=== PATIENT | female | born 1960 | race Hispanic/Latino ===

== ENCOUNTER → 2025-02-02 | Day surgery (SDC) | payer BC, OTHER ==
[2025-01-30 08:59] LABS: BASOPHILS % 0.2 % (0.0-1.0); EOSINOPHILS % 0.9 % (0.0-6.0); LYMPHOCYTES % 42.6 % (18.0-39.1); MONOCYTES % 7.3 % (4.4-11.3); NEUTROPHILS % 48.8 % (38.7-80.0); RED CELL DISTRIBUTION WIDTH 12.8 % (11.7-14.4)
[~2025-02-02] MED LIST: ACETAMINOPHEN 1000 MG/100 ML 100 ML IV ONE; ACETAMINOPHEN 1000 MG/100 ML IV PRN; ASPIRIN 325 MG TAB PO SCH; ASPIRIN81 MG PO; CELECOXIB 100 MG CAP PO SCH; DEXAMETHASONE 10MG/ML PF INJ ONE; DEXAMETHASONE SOD PHOS INJ 4 MG/ML SDV ONE; DIPHENHYDRAMINE HCL INJ 50 MG/ML VIAL IV PRN; DOCUSATE SODIUM 100 MG CAP PO PRN; EPHEDRINE SULFATE INJ 50 MG/ML VIAL ONE; FENTANYL CITRATE/PF 100MCG/2 ML INJ ONE; GLYCOPYRROLATE INJ 0.2 MG/ML VIAL ONE; HYDROCODONE/APAP 5MG-325MG TAB PO PRN; HYDROCODONE/APAP 7.5MG-325MG 1 EA TAB PO PRN; LIDOCAINE HCL 2% LOCAL INJ 5 ML SDV VIAL INJ ONE; METOCLOPRAMIDE HCL 10 MG/2ML VIAL ONE; MIDAZOLAM HCL 2 MG/2 ML VIAL ONE; NEOSTIGMINE 1 MG/ML 10ML VIAL ONE; OMEPRAZOLE40 MG PO; ONDANSETRON HCL INJ 2MG/ML 2ML 2 MG/ML VIAL IV PRN; ONDANSETRON HCL INJ 2MG/ML 2ML 2 MG/ML VIAL ONE; PROPOFOL IV EMULSION 10 MG/ML 20 ML VIAL ONE; PRUNELAX PO; ROCURONIUM BROMIDE 1 ML IV ONE; ROPIVACAINE/EPI/CLONIDINE/KET 50 ML SYRINGE INJ ONE; SODIUM CHLORIDE 0.9% 1000ML 1,000 ML IV SCH; SUCCINYLCHOLINE CHLORIDE 20 MG/ML 10ML VIAL ONE; [UNRECOGNIZED DRUG - OTHER] PO
[2025-02-02] MEDS: GABAPENTIN 300 MG CAP ONE (08:32)
[2025-02-02] MEDS: CELECOXIB 200 MG CAP ONE (08:33)
[2025-02-02] MEDS: CEFAZOLIN SODIUM 2 GM ONE (08:34)
[2025-02-02] MEDS: LACTATED RINGER'S 1,000 ML ONE (08:35)
[2025-02-02 11:03] VITALS: TEMP 97
[2025-02-02] MEDS: SCOPOLAMINE 1 MG PATCH ONE (14:02)
[2025-02-02] MEDS: ONDANSETRON HCL INJ 2MG/ML 2ML 2 MG/ML VIAL ONE (14:02)
[2025-02-02 16:00] VITALS: BP 142/75; PULSE 78; RESP 16; O2SAT 97
== END | disposition home health service (06) ==
LOC: OR 07:57
PROVIDERS: ATTEND Specialist
DX: M17.11 Unilateral primary osteoarthritis, right knee (principal); M25.761 Osteophyte, right knee; I10 Essential (primary) hypertension; E66.01 Morbid (severe) obesity due to excess calories; K21.9 Gastro-esophageal reflux disease without esophagitis; Z01.812 Encounter for preprocedural laboratory examination; Z79.82 Long term (current) use of aspirin; Z68.39 Body mass index [BMI] 39.0-39.9, adult
CPT/HCPCS: 27447; 36415; 73560; 85025; 86850; 86900; 97116 ×2; 97162; 97530; C1713 ×2; C1776 ×2; J0131; J0330; J1100; J2003; J2250; J2405; J2704; J2710; J2765; J3010; J7121

== ENCOUNTER 2025-03-06 13:48 | Outpatient (RCR) | payer BC ==
[~2025-03-06 13:48] MED LIST changes: -ACETAMINOPHEN 1000 MG/100 ML 100 ML IV ONE; -ACETAMINOPHEN 1000 MG/100 ML IV PRN; -ASPIRIN 325 MG TAB PO SCH; -CELECOXIB 100 MG CAP PO SCH; -DEXAMETHASONE 10MG/ML PF INJ ONE; -DEXAMETHASONE SOD PHOS INJ 4 MG/ML SDV ONE; -DIPHENHYDRAMINE HCL INJ 50 MG/ML VIAL IV PRN; -DOCUSATE SODIUM 100 MG CAP PO PRN; -EPHEDRINE SULFATE INJ 50 MG/ML VIAL ONE; -FENTANYL CITRATE/PF 100MCG/2 ML INJ ONE; -GLYCOPYRROLATE INJ 0.2 MG/ML VIAL ONE; -HYDROCODONE/APAP 5MG-325MG TAB PO PRN; -HYDROCODONE/APAP 7.5MG-325MG 1 EA TAB PO PRN; -LIDOCAINE HCL 2% LOCAL INJ 5 ML SDV VIAL INJ ONE; -METOCLOPRAMIDE HCL 10 MG/2ML VIAL ONE; -MIDAZOLAM HCL 2 MG/2 ML VIAL ONE; -NEOSTIGMINE 1 MG/ML 10ML VIAL ONE; -ONDANSETRON HCL INJ 2MG/ML 2ML 2 MG/ML VIAL IV PRN; -ONDANSETRON HCL INJ 2MG/ML 2ML 2 MG/ML VIAL ONE; -PROPOFOL IV EMULSION 10 MG/ML 20 ML VIAL ONE; -ROCURONIUM BROMIDE 1 ML IV ONE; -ROPIVACAINE/EPI/CLONIDINE/KET 50 ML SYRINGE INJ ONE; -SODIUM CHLORIDE 0.9% 1000ML 1,000 ML IV SCH; -SUCCINYLCHOLINE CHLORIDE 20 MG/ML 10ML VIAL ONE
== END 2025-03-08 ==
LOC: PT 13:48
PROVIDERS: ATTEND Physician Assistant
DX: Z47.1 Aftercare following joint replacement surgery (principal); Z96.651 Presence of right artificial knee joint; M62.81 Muscle weakness (generalized); M25.561 Pain in right knee; M25.661 Stiffness of right knee, not elsewhere classified

== ENCOUNTER 2025-03-27 08:46 | Outpatient (RCR) | payer BC | END 2025-04-07 | LOC: PT 08:46 | PROVIDERS: ATTEND Physician Assistant | DX: Z47.1 Aftercare following joint replacement surgery (principal); Z96.651 Presence of right artificial knee joint; M25.561 Pain in right knee; M25.661 Stiffness of right knee, not elsewhere classified; M62.81 Muscle weakness (generalized) ==

== ENCOUNTER → 2025-04-13 | Day surgery (SDC) | payer BC, OTHER ==
[2025-04-07 09:25] LABS: BASOPHILS % 0.3 % (0.0-1.0); EOSINOPHILS % 0.8 % (0.0-6.0); LYMPHOCYTES % 21.8 % (18.0-39.1); MONOCYTES % 5.2 % (4.4-11.3); NEUTROPHILS % 71.8 % (38.7-80.0); RED CELL DISTRIBUTION WIDTH 12.5 % (11.7-14.4)
[~2025-04-13] MED LIST changes: +ACETAMINOPHEN 1000 MG/100 ML 100 ML IV ONE; +ACETAMINOPHEN 1000 MG/100 ML IV PRN; +ASPIRIN 325 MG TAB PO SCH; +CEFAZOLIN SODIUM 2 GM ONE; +CELECOXIB 100 MG CAP PO SCH; +DIPHENHYDRAMINE HCL INJ 50 MG/ML VIAL IV PRN; +DOCUSATE SODIUM 100 MG CAP PO PRN; +EPHEDRINE SULFATE INJ 50 MG/ML VIAL ONE; +FAMOTIDINE 20 MG/2 ML VIAL IV ONE; +FENTANYL CITRATE/PF 100MCG/2 ML INJ ONE; +HYDROCODONE/APAP 5MG-325MG TAB PO PRN; +LIDOCAINE HCL 2% LOCAL INJ 5 ML SDV VIAL INJ ONE; +MIDAZOLAM HCL 2 MG/2 ML VIAL ONE; +ONDANSETRON HCL INJ 2MG/ML 2ML 2 MG/ML VIAL IV PRN; +ONDANSETRON HCL INJ 2MG/ML 2ML 2 MG/ML VIAL ONE; +PROPOFOL IV EMULSION 10 MG/ML 20 ML VIAL ONE; +ROPIVACAINE/EPI/CLONIDINE/KET 50 ML SYRINGE INJ ONE; +SEVOFLURANE INHAL SOLN 250 ML PEN BTL ONE; +SODIUM CHLORIDE 0.9% 1000ML 1,000 ML IV SCH
[2025-04-13] MEDS: DEXAMETHASONE 10MG/ML PF INJ ONE (06:09)
[2025-04-13] MEDS: CELECOXIB 200 MG CAP ONE (06:11)
[2025-04-13] MEDS: LACTATED RINGER'S 1,000 ML ONE (06:11)
[2025-04-13] MEDS: GABAPENTIN 300 MG CAP ONE (06:11)
[2025-04-13 08:54] VITALS: TEMP 97.6
[2025-04-13] MEDS: HYDROCODONE/APAP 7.5MG-325MG 1 EA TAB PO PRN (09:45)
[2025-04-13 12:30] VITALS: BP 130/72; PULSE 76; RESP 16; O2SAT 97
[2025-04-13] MEDS: ONDANSETRON HCL INJ 2MG/ML 2ML 2 MG/ML VIAL IV ONE (12:55)
== END | disposition home health service (06) ==
LOC: OR 05:25
PROVIDERS: ATTEND Specialist
DX: M17.12 Unilateral primary osteoarthritis, left knee (principal); M25.762 Osteophyte, left knee; Z96.651 Presence of right artificial knee joint; Z71.82 Exercise counseling; E66.9 Obesity, unspecified; I10 Essential (primary) hypertension; K21.9 Gastro-esophageal reflux disease without esophagitis; M54.2 Cervicalgia; M54.9 Dorsalgia, unspecified; Z01.810 Encounter for preprocedural cardiovascular examination; Z01.812 Encounter for preprocedural laboratory examination; Z79.82 Long term (current) use of aspirin; Z68.39 Body mass index [BMI] 39.0-39.9, adult; Z71.3 Dietary counseling and surveillance
CPT/HCPCS: 27447; 36415; 73560; 85025; 86850; 86900; 93005; 97116; 97162; 97530; C1713 ×2; C1776 ×2; J0131; J1308; J2003; J2250; J2405; J2704; J3010; J7121